=== PATIENT | female | born 1965 | race African-American/Black ===

== ENCOUNTER 2017-03-23 01:13 | Observation (INO) | payer OTHER ==
[~2017-03-23] VITALS: Ht 165.1 cm; Wt 95.2 kg
--- NOTE | ~2017-03-23 | EKG ---
PATIENT: VANESA BLACK UNIT #: [id number] Ventricular Rate: 87 BPM Atrial Rate: 87 BPM P-R Interval: 160 ms QRS Duration: 86 ms Q-T Interval: 398 ms QTC Calculation(Bezet): 478 ms P Anthony: 57 degrees Calculated R Anthony: 42 degrees Calculated T Anthony: 40 degrees Diagnosis Line: Normal sinus rhythm Diagnosis Line: Normal ECG Diagnosis Line: When compared with ECG of 23-MAR-2017 01:25, Diagnosis Line: (unconfirmed) Diagnosis Line: No significant change was found Diagnosis Line: Confirmed by MARLON RETANA MD ([id number]) on Diagnosis Line: 03/23/2017 9:36:50 AM INTERPRETING MD: MAZIN MATHIS
--- NOTE | ~2017-03-23 | DS ---
Unit #: [id number] #: [id number] Patient: VANESA BLACK [id number] [address] [address] [id number] I MR#: [id number] NAME: VANESA BLACK ROOM: 579 Age: 51 Sex: F Admission Date: 03/23/2017 : 1965 Discharge Date: 03/23/2017 Attending Physician: Valarie Carroll M.D. Primary Care Physician: Rico Barbosa M.D. DISCHARGE SUMMARY DISCHARGE DIAGNOSES 1. Atypical chest pain. 2. Hypothyroidism. 3. Obesity with a body mass index greater than 30. 4. Obstructive sleep apnea. 5. Reformed tobaccoism. PROCEDURES 1. Patient underwent a Lexiscan Cardiolite stress test which, per Dr. aWn, is normal and shows no ischemia. Full report is pending. 2. Two-D echocardiogram pending. 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 She denies ever having history of myocardial infarction, 2D echocardiogram or a cardiac cath. She states that she has a past medical history of vertigo, hyperlipidemia, obesity, obstructive sleep apnea, hypothyroidism with a thyroidectomy and she is a reformed smoker. She presented to the emergency department last night after she developed sharp mid sternal chest pain that radiated straight to her back. The pain did resolve almost immediately but a dull pain lasted for approximately one to two hours and she was admitted to the emergency department. In the emergency department, the patient's EKG was unremarkable and her troponin was less than 0.03. Also, the patient underwent a Lexiscan Cardiolite stress test which reportedly, per Dr. Wan, is normal. A 2D echocardiogram is pending. Once Dr. Wan has seen the patient, the patient will be discharged home. DISCHARGE FOLLOWUP INSTRUCTIONS 1. Patient will be discharged home after seen by Dr. Wan. 2. Follow up with primary care provider in one week. 3. Healthy heart diet. 4. Activity as tolerated. 5. Seek medical attention or return to ER if signs or symptoms return. DISCHARGE MEDICATIONS 1. Ventolin one puff inhalation q.6 h. p.r.n. shortness of breath. 2. Claritin 10 mg p.o. daily. 3. Xanax 0.25 mg p.o. q.8 h. p.r.n. 4. Aspirin 81 mg p.o. daily. 5. Levothyroxine one tab p.o. daily. 6. Vitamin D and folic acid one tab p.o. daily. Unit #: [id number] #: [id number] Patient: VANESA BLACK Dictated by... Heather Wasserman A.P.R.N. for Jeffery Wan M.D. AM/giorgio TD: 03/23/2017 17:45 JOB #: [id number] DISCHARGE SUMMARY Page 1 of 1 X Heather Wasserman FINISHED METAL REPAIRER X DISCHARGE SUMMARY
--- NOTE | ~2017-03-23 | HP ---
Unit #: [id number] #: [id number] Patient: VANESA BLACK [id number] [address] [address] [id number] I MR#: [id number] NAME: VANESA BLACK ROOM: 09998 Age: 51 Sex: F Admission Date: 03/23/2017 : 1965 Attending Physician: Valarie Carroll M.D. Primary Care Physician: Rico Barbosa M.D. HISTORY AND PHYSICAL CHIEF COMPLAINT Chest pain. 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 She denies ever having a history of myocardial infarction, 2D echocardiogram or cardiac catheterization. She endorsed that she has a past medical history of vertigo, hyperlipidemia, obesity, obstructive sleep apnea, and she is a reformed smoker. Patient presented to the emergency department last night after she developed sharp midsternal chest pain that radiated to her back. The pain did resolve almost immediately but a dull pain that lasted for almost one to two hours after patient was admitted to the emergency department. She endorses that last night that she had jamil slaw and pulled pork with no barbecue on it for dinner. She denies any history of acid reflux or GERD. Patient endorses that she did not experience any shortness of breath or diaphoresis when she had the sharp stabbing pain or the dull pain. In the emergency department, the patient was treated with aspirin, Mylanta and Tylenol. The patient's pain had resolved. Her EKG was unremarkable and troponin is less than 0.03. PAST MEDICAL HISTORY 1. History of vertigo. 2. Obstructive sleep apnea. 3. Obesity. 4. Hyperlipidemia. 5. Hypothyroidism. PAST SURGICAL HISTORY Thyroidectomy. ALLERGIES IV dry. HOME MEDICATIONS 1. Xanax 0.25 mg p.o. q.8 hours p.r.n. anxiety. 2. Levo-T 1 tab p.o. daily. 3. Claritin 10 mg p.o. daily. FAMILY HISTORY The patient endorses that she has a family history of TIA. Unit #: [id number] #: [id number] Patient: VANESA BLACK SOCIAL HISTORY The patient lives with her . She endorses that she quit smoking about seven years ago. She drinks alcohol rarely an denies any illicit drug abuse. REVIEW OF SYSTEMS A ten point review of systems has been done and otherwise negative as indicated in the HPI. PHYSICAL EXAMINATION GENERAL: The patient is awake, alert, in no acute distress. VITAL SIGNS: Temperature 98.3, heart rate 75, respirations 20, blood pressure 119/91. She is oxygenating 100%. HEENT: Head is atraumatic and normocephalic. Pupils equal, round, and reactive. Extraocular movements are intact. No drainage from ears or nares. NECK: Supple. Trachea is midline. Normal carotid upstrokes. CHEST: Lungs are clear to auscultation bilaterally. No wheezes, rales or rhonchi. CARDIOVASCULAR: S1 and S2. Regular rate and rhythm. No murmur, rub or gallop appreciated. ABDOMEN: Soft, nontender and nondistended. Bowel sounds are positive in all four quadrants. SKIN: Appears to be warm, dry and intact without any unusual rashes or lesions. EXTREMITIES: No clubbing or cyanosis. NEUROLOGIC: Patient is alert and oriented x4. She is pleasant and conversant. No focal deficits. Cranial nerves II through XII appear to be intact. DIAGNOSTIC STUDIES CARDIOLOGY STUDIES: EKG showed no sinus rhythm. LABORATORY STUDIES: White blood cell 7.8, hemoglobin 13.3, hematocrit 42.1, platelets 298. Sodium 139, potassium 3.5, chloride 105, CO2 28, BUN 15, creatinine 1, glucose 101, lipase 19, amylase 25. Troponin is less than 0.03. ASSESSMENT/PLAN 1. Chest pain. 2. Hypothyroidism, status post thyroidectomy. 3. Obesity with BMI greater than 30. 4. Obstructive sleep apnea. 5. Reformed tobaccoism. 6. At this time will check a Lexiscan Cardiolite stress test and a 2D echocardiogram. Will additionally check a TSH and a lipid panel. Will add Zofran 4 mg IV q.6 hours p.r.n. for nausea. Further recommendations will be made per Dr. Wan. Dictated by Heather Wasserman A.P.R.N. for Jeffery Wan M.D. AM/aston TD: 03/23/2017 09:30 JOB #: [id number] Unit #: [id number] #: [id number] Patient: VANESA BLACK HISTORY AND PHYSICAL Page 1 of 1 X Heather Wasserman APRN X HISTORY AND PHYSICAL
--- NOTE | ~2017-03-23 | ST ---
Unit #: [id number] #: [id number] Patient: VANESA BLACK [id number] [address] [address] [id number] I MR#: [id number] NAME: VANESA BLACK : 1965 SEX: F STUDY DATE/TIME: 03/23/2017 UNIT: [facility] ROOM: 579 STUDY DESCRIPTION: Attending Physician: Valarie Carroll M.D. Primary Care Physician: Rico Barbosa M.D. CARDIOLOGY REPORT EXAM Nuclear stress test. SUMMARY The patient underwent nuclear stress test. Received a resting dose of 11 mCi and a stress dose of 35.5 mCi. On gated imaging, the patient appears to have normal wall motion with a preserved ejection fraction. The patient's LV EF is 68%. On perfusion imaging, comparing rest and stress images, there appears to be no reversible perfusion defects. CONCLUSION 1. No obvious ischemia. 2. Preserved ejection fraction. 3. ECG portion dictated below. EXAM ECG portion. SUMMARY The patient underwent Lexiscan stress test. The patient's resting heart rate was 105 beats per minute which increased to 137 beats per minute representing 80% of the maximum age predicted heart rate. The patient's peak blood pressure is 146/86 mmHg during the exercise. The patient's resting ECG shows normal sinus rhythm with nonspecific T-wave changes seen in lead III. The patient's stress ECG during Lexiscan shows sinus tachycardia with preserved ST segments and continued nonspecific T-wave changes in lead III. There is no ventricular, supraventricular ectopy noted. There are no pauses noted. CONCLUSION 1. Negative ECG portion of the Lexiscan study for ischemia. 2. Perfusion imaging dictated above. Dictated by... Sidney Rooney/annamaria TD: 03/23/2017 14:16 JOB #: [id number] Unit #: [id number] #: [id number] Patient: VANESA BLACK CARDIOLOGY REPORT Page 1 of 1 X DELFINA RAND MD CARDIOLOGY REPORT
--- NOTE | ~2017-03-23 | CR72 ---
[facility] A Service of [facility] & [facility] RADIOLOGY TEXT RESULTS PATIENT: VANESA BLACK LOCATION: [facility] 579-01 : [birth year] UNIT #: [id number] AGE: [address]: Valarie Carroll MD SEX: F ORDER DR: [id number] [facility] [address]. [place], [place] [address] [id number] I MR#: [id number] Acc #: [id number] NAME: VANESA BLACK : 1965 SEX: F STUDY DATE/TIME: 03/23/2017 1:52 [facility] RO[facility]: 27395 STUDY DESCRIPTION: CR Chest Single View Portable Attending Physician: Valarie Carroll M.D. Ordering Physician: Ed Doctor [id number] [facility] Primary Care Physician: Rico Barbosa M.D. MEDICAL IMAGING REPORT This report is preliminary unless electronic signature is present EXAM Portable chest INDICATION Chest pain and shortness of air tonight. PROCEDURE Frontal view chest COMPARISON 05/10/2016 FINDINGS Heart size is within normal limits. No dense consolidation, pleural fluid or pneumothorax. IMPRESSION No active process. Dictated by... Gerald Abarca M.D. THIS IS AN ELECTRONICALLY VERIFIED REPORT Gerald Abarca M.D. at 03/23/2017 10:01 PM Jenny TD: 03/23/2017 10:02 JOB #: [id number] MEDICAL IMAGING REPORT Page 1 of 1 COPY
[~2017-03-23 01:13] MED LIST: ACETAMINOPHEN PO; KLONOPIN PO; MEDROL DOSEPAK4 MG PO; SYNTHROID175 MCG PO
[2017-03-23 02:23] LABS: POC - CKMB <1.0 ng/mL (0.0-7.9); POC - TROPONIN <0.05 ng/mL (<=0.05)
[2017-03-23 02:25] LABS: BASOPHIL# 0.1 X10e3 (0-0.3); EOSINOPHIL# 0.1 X10e3 (0-0.7); EOSINOPHIL% 1.6 % (0.0-7.0); HEMATOCRIT 42.1 % (35.0-45.0); HEMOGLOBIN 13.3 gm/dL (12.0-16.0); LYMPHOCYTE# 4.3 X10e3 (1.0-3.5); LYMPHOCYTE% 54.8 % (17.0-45.0); MEAN CORPUSCULAR HEMOGLOBIN 25.8 PG (28-34); MEAN CORPUSCULAR HGB CONC 31.5 g/dL (30-36); MEAN PLATELET VOLUME 9.9 FL (6.5-11.5); MONOCYTE# 0.5 X10e3 (0-1.0); MONOCYTE% 6.9 % (3.0-12.0); NEUTROPHIL# 2.8 X10e3 (1.5-7.1); NEUTROPHIL% 35.7 % (40-75); PLATELET COUNT 298 X10e3 (140-420); RED BLOOD COUNT 5.14 X10e (3.90-5.30); WHITE BLOOD COUNT 7.8 X10e3 (4.0-10.5)
[2017-03-23 02:26] LABS: DIFF IND YES
[2017-03-23 02:49] LABS: ANISOCYTOSIS SL; DIFFERENTIAL COMMENT ATY.LYMPHS; PLATELET ESTIMATE NORMAL (NORMAL)
[2017-03-23 02:51] LABS: PARTIAL THROMBOPLASTIN TIME 25.7 SECONDS (23.5-31.3); PROTHROMBIN TIME (PATIENT) 11.2 SECONDS (10.0-11.7)
[2017-03-23 02:53] LABS: ALKALINE PHOSPHATASE 69 U/L (32-92); ALT (SGPT) 18 U/L (10-40); AST (SGOT) 16 U/L (10-42); BILIRUBIN,TOTAL 0.4 mg/dL (0.2-2.0); BLOOD UREA NITROGEN 15 mg/dL (9-23); CARBON DIOXIDE 28 mmol/L (22-31); CHLORIDE 105 mmol/L (100-111); GLOM FILT RATE Estimated 76.1 mL/min (>60); GLUCOSE FASTING 101 mg/dL (70-110); POTASSIUM 3.5 mmol/L (3.5-5.1); SODIUM 139 mmol/L (135-145)
[2017-03-23 02:55] LABS: BILIRUBIN, DIRECT <0.1 mg/dL (0.0-0.2); BILIRUBIN,INDIRECT 0.3 mg/dL (0.0-0.9)
[2017-03-23 04:02] LABS: AMYLASE 24 U/L (0-46); LIPASE 19 U/L (22-51)
[2017-03-23 04:19] LABS: POC - CKMB <1.0 ng/mL (0.0-7.9); POC - TROPONIN <0.05 ng/mL (<=0.05)
[2017-03-23 07:54] LABS: %MB 0.7 % (0.0-4.0); MB 0.6 ng/ml
[2017-03-23] MEDS ORDERED: ALPRAZOLAM PO (08:29)
[2017-03-23] MEDS ORDERED: CLARITIN10 M3 PO (08:30)
[2017-03-23] MEDS ORDERED: LEVO-T175 MCG PO (08:30)
[2017-03-23] MEDS ORDERED: FOLIXAPURE5000 UNIT (12:57)
[2017-03-23] MEDS ORDERED: ALBUTEROL17 GM INH (12:57)
[2017-03-23 13:41] LABS: CHOLESTEROL 180 mg/dL (0-200); HDL CHOLESTEROL 41 mg/dL (35-95); LDL CHOLESTEROL 126 mg/dL ([, -130]); LDL/HDL RATIO 3 RATIO (0-4); TRIGLYCERIDES 65 mg/dL (10-160)
== END 2017-03-23 18:10 | disposition home or self-care (01) | DRG 313 ==
LOC: CED 01:13 → CEDOF 05:20 → CED 05:47 → CEDOF 12:33 → C5C 12:33
PROVIDERS: Nurse Practitioner
DX: R07.89 Other chest pain (principal); I51.7 Cardiomegaly; I08.1 Rheumatic disorders of both mitral and tricuspid valves; E03.9 Hypothyroidism, unspecified; E66.9 Obesity, unspecified; Z68.30 Body mass index [BMI] 30.0-30.9, adult; G47.33 Obstructive sleep apnea (adult) (pediatric); Z87.891 Personal history of nicotine dependence; Z79.899 Other long term (current) drug therapy; Z82.3 Family history of stroke; Z98.890 Other specified postprocedural states; Z91.041 Radiographic dye allergy status
CPT/HCPCS: 36415; 71010; 78452; 80048; 80061; 80076; 82150; 82550; 82553; 83690; 84443; 84484; 85025; 85610; 85730; 93005; 93017; 93306; 99285; A9500; G0378; J2785